=== PATIENT | male | born 1955 | race Caucasian/White ===

== ENCOUNTER 2021-10-24 10:46 | Emergency (ER) | payer MEDICARE, SELFPAY ==
--- NOTE | ~2021-10-24 | XR_ITS ---
XR humerus RT DATE: 10/24/2021 11:06 INDICATION: Fall. Right humerus pain. TECHNIQUE: AP and lateral views COMPARISON: None FINDINGS: There is mild degenerative change at the right acromioclavicular joint. No fracture, dislocation, periosteal reaction or bone destruction of the right humerus. Normal alignm ent at the glenohumeral and elbow joints. IMPRESSION: No fracture or dislocation or bone destruction of the right humerus Reviewed, dictated and finalized at location B.
--- NOTE | 2021-10-24 10:50 | ED.UPPEXIN ---
HPI - Extremity Injury (Upper) General Chief Complaint: Extremity Injury, Upper Stated Complaint: INJURED R ARM Time Seen by Provider: 10/24/21 11:10 Source: patient and RN notes reviewed Mode of arrival: ambulatory Limitations: no limitations History of Present Illness HPI narrative: 65-year-old male presents with concern for pain to the right upper arm area. He reports he fell earlier today landing on hard metal object on his arm. He reports no pain when his arm is extended straight, he reports pain when the elbow is bent. He also reports a small abrasion to the left forearm, he would like a tetanus shot. He denies decree strength, sensation, range of motion in the right arm or hand. MD complaint: injury to: right and arm Related Data Home Medications Medication Instructions Recorded Confirmed aspirin 81 mg tablet,delayed mg 10/24/21 release losartan 10/24/21 pantoprazole 10/24/21 rosuvastatin 10/24/21 Allergies Allergy/AdvReac Type Severity Reaction Status Date / Time No Known Allergies Allergy Unverified 07/24/12 18:00 Review of Systems Review of Systems: CONSTITUTIONAL: Denies malaise, chills, sweats, or fever. SKIN: Denies rash or itching, redness, warmth, swelling.. Reports small abrasion to the left forearm MUSCULOSKELETAL: Reports right arm pain NEUROLOGIC: Denies numbness, weakness All systems reviewed & are unremarkable except as noted in HPI and below PMFSH Comments At time of signature, agree with nursing past medical, surgical, social and family history. There is no relevant family history pertinent to the presenting complaint Exam Narrative: GENERAL: Well-appearing, well-nourished, and in no acute distress. HEAD: Normocephalic, atraumatic. EYES: PERRLA, conjunctivae clear NECK: Supple. CHEST: Speaks in full sentences. No respiratory distress. HEART: Regular rate and rhythm. Normal and equal peripheral pulses. EXTREMITIES: Right upper extremity has normal strength and sensation, grossly normal range of motion. No edema or ecchymosis. 5/5 strength with elbow and digit flexion and extension. Normal sensation with sensitivity to light touch and pain. Tenderness to the right lateral humerus, proximal to the elbow. No open wounds, no skin tenting, no devitalized tissue or atrophy, no trophic changes, no obvious deformity, alignment normal, nearby joints and structures intact. Distal pulses palpable and equal bilaterally, skin warm, dry, pink. Capillary refill less than 3 seconds. SKIN: Warm, dry, no rash. NEURO: Alert and oriented x3. PSYCH: Normal mood and affect Course Course Emergency Course: Patient is aware of diagnosis, understands and agrees to treatment plan. Anticipatory guidance given. Patient agrees to follow-up as directed and is aware of reasons to seek care at the emergency department. Portions of this record may have been created with voice recognition software Level of Care: Express Care Visit Vital Signs Vital signs: Reviewed. MDM - Extremity Injury (Upper) MDM Narrative Medical decision making narrative: Patients injury and pain is consistent with musculoskeletal etiology. No signs of neurological or vascular compromise on exam. Compartments and tissues are soft without signs of compartment syndrome. Pain is felt appropriate for further evaluation on an outpatient basis. Imaging Data My impression: Images reviewed, interpreted by radiologist, agree, see report. Radiologist's impression: XR humerus RT DATE: 10/24/2021 11:06 INDICATION: Fall. Right humerus pain.? TECHNIQUE: AP and lateral views? COMPARISON: None? FINDINGS: There is mild degenerative change at the right acromioclavicular joint. No fracture, dislocation, periosteal reaction or bone destruction of the right humerus. Normal alignment at the glenohumeral and elbow joints.? IMPRESSION: No fracture or dislocation or bone destruction of the right humerus? Critical Care Time Critical Care Ti
[2021-10-24 11:13] VITALS: BP 133/74; PULSE 80; RESP 16; TEMP 37.1; O2SAT 99
[2021-10-24] MEDS: TETANUS,DIPHTHERIA,AC PERTUSSIS ADULT (0.5 ML) BOOSTRIX IM (11:24)
== END 2021-10-24 11:33 | disposition home or self-care (01) ==
PROVIDERS: Emergency Provider Nurse Practitioner
DX: S49.91XA Unspecified injury of right shoulder and upper arm, initial encounter (principal); W19.XXXA Unspecified fall, initial encounter; Z23 Encounter for immunization; Z79.82 Long term (current) use of aspirin
CPT/HCPCS: 73060; 90471; 90715; 99213; G0463